=== PATIENT | female | born 1965 | race Caucasian/White ===

== ENCOUNTER 2021-10-13 17:33 | Emergency (ER) | payer OTHER ==
[~2021-10-13 17:33] MED LIST: ACETAMINOPHEN325 MG PO; AUGMENTIN 875-1 EACH PO; COLACE100 MG PO; EFFEXOR XR75 MG PO; HYDROMORPHONE2 MG/ML IVP; LAXATIVE SUPPOS10 MG PO; LEVAQUIN750 MG PO; METRONIDAZOLE500 MG PO; NORCO 5-325 TA1 EACH PO; NYSTATIN SUSP1 ML/ML SSP; ONDANSETRON ODT4 MG PO; ONDANSETRON4 MG/2 M2 IVP; PERCOCET 5-3251 EACH PO; PROTONIX40 MG PO; SENOKOT-S TABL1 EACH PO; VENLAFAXINE HC225 MG PO; ZOFRAN4 MG PO; ZOSYN 3.373.375 GM/5 IV
== END 2021-10-13 18:37 | disposition home or self-care (01) ==
LOC: FER 17:33
DX: K64.4 Residual hemorrhoidal skin tags (principal); Z88.1 Allergy status to other antibiotic agents
CPT/HCPCS: 99282